=== PATIENT | male | born 1955 | race Caucasian/White ===

== ENCOUNTER 2018-06-28 13:04 | Inpatient (IN) ==
--- NOTE | 2018-06-28 15:34 | ED ---
HPI General Chief complaint: Skin/Abscess/Foreign Body Stated complaint: Medical Time Seen by Provider: 06/28/18 15:16 Source: patient and RN notes reviewed Mode of arrival: ambulatory Limitations: no limitations History of Present Illness HPI narrative: 63-year-old male presents to the emergency department for evaluation of fever, erythema to his bilateral feet. Patient states that on June 16, 2018, he first noticed some erythema to his right foot. He states that he did not think much of it. He states that on Monday, he noticed some erythema to his left foot and left knee. He went to [facility] last night and states he received IV antibiotics around 1 AM. He was moved to room which she says was "dirty". He then left AGAINST MEDICAL ADVICE. He presents here for IV antibiotics. He does not know what antibiotics he already received. Patient does have history of hypertension, type 2 diabetes. He has a fever of 101 upon arrival. Patient denies any other symptoms or complaints. Current pain is 9/10. Moderate severity. MD complaint: Reports other (Cellulitis) Onset (ago): week(s) Location: Reports LLE and RLE Severity: moderate Severity scale (1-10): 9 Quality: Reports aching Pain Consistency: constant Relieving factors: none Exacerbating factors: none Associated symptoms: Reports fever and chills; Denies rigors, itching, nausea, vomiting, malaise, arthralgias, myalgias, cough and shortness of breath Related Data Home Medications Medication Instructions Recorded Confirmed aspirin 81 mg PO DAILY 06/28/18 06/28/18 clonidine HCl 0.3 mg PO BID 06/28/18 06/28/18 cyanocobalamin (vitamin B-12) 1,000 mcg PO DAILY 06/28/18 06/28/18 ferrous sulfate 120 ml PO DAILY 06/28/18 06/28/18 furosemide 10 mg PO DAILY 06/28/18 06/28/18 hydralazine 50 mg PO TID 06/28/18 06/28/18 insulin lispro [Humalog KwikPen 20 unit SUBCUT BID 06/28/18 06/28/18 Insulin] liraglutide 0.6 mg SUBCUT DAILY 06/28/18 06/28/18 lisinopril 20 mg PO DAILY 06/28/18 06/28/18 metoprolol tartrate 100 mg PO BID 06/28/18 06/28/18 patiromer calcium sorbitex 8.4 g PO DAILY 06/28/18 06/28/18 spironolactone 25 mg PO DAILY 06/28/18 06/28/18 tadalafil 20 mg PO DAILY 06/28/18 06/28/18 Allergies Allergy/AdvReac Type Severity Reaction Status Date / Time amlodipine Allergy Swelling Verified 06/28/18 15:29 Review of Systems ROS: all other systems reviewed are negative [facility] Medical History Medical History Diabetes (Acute) Hypertension (Acute) Stage 3 chronic kidney disease (Acute) Surgical History Surgical History History of elbow surgery (Acute) Social History Social History Substance History: No History of Abuse Second Hand Smoke Exposure: No Smoking Status: Never smoker How Often Do You Have a Drink Containing Alcohol: Monthly or less Recent Travel in [facility] within the Last 8 Weeks: No Recent Out of Country Travel within the Last 8 Weeks: No Immunization History Tetanus Immunization: Unsure Exam Narrative Exam Narrative: GENERAL: Well-nourished, well-developed male patient, temp of 101 SKIN: Focused skin assessment warm/dry. Patient has erythema to the right dorsal foot at the base of the toes as well as to the right lateral foot. He has some mild erythema to the left dorsal foot and left dorsal knee. HEAD: Normocephalic. Atraumatic. EYES: No scleral icterus. No injection or drainage. NECK: Supple, trachea midline. No JVD or lymphadenopathy. CARDIOVASCULAR: Regular rate and rhythm without murmurs, gallops, or rubs. Bilateral radial and pedal pulses are 2+ RESPIRATORY: Breath sounds equal bilaterally. No accessory muscle use. Lung sounds are clear to auscultation GASTROINTESTINAL: Abdomen soft, non-tender, nondistended. MUSCULOSKELETAL: No cyanosis. Patient has edema to the right foot. He has full flexion-extension of the left knee. BACK: Nontender without obvious deformity. No CVA tenderness. Course Initial Documented Vital Signs Temperature 101 F H 06/28/18 13:28 Pulse Rate 66 06/28/18 13:28 Respiratory Rate 18 06/28/18 13:28 Blood Pressure 145/72 H 06/28/18 13:28 Pulse Oximetry 96 06/28/18 13:28 Last Documented Vital Signs Temperature 101 F H 06/28/18 13:28 Pulse Rate 65 06/28/18 16:28 Respiratory Rate 18 06/28/18 13:28 Blood Pressure 145/72 H 06/28/18 13:28 Pulse Oximetry 99 06/28/18 16:28 Medical Decision Making MDM Narrative Medical decision making narrative: 63-year-old male presents to the emergency department for evaluation of fever, erythema to the bilateral feet and left knee. He is diabetic. He left AMA from [facility] yesterday. I will attempt to obtain his records before starting him on antibiotics as I do not know what antibiotics he received last night. IV access was obtained. CBC, CMP, lactic acid, blood cultures x2, CRP, ESR, x-ray of the right foot, 3 left foot, x-ray left knee are ordered and pending. Patient is given normal saline 1 L IV bolus , Tylenol 650 mg PO, Morphine 4 mg IV, Zofran 4 mg IV. Patient is given Zosyn 3.375 gm IV. CBC shows leukocytosis of 12.1. CMP shows elevated BUN 62, creatinine 2.90, hyperglycemia 193. ESR is greater than 140. Magnesium is 2.3. CRP is 14. Lactic acid is 1.0. X-ray of the right foot shows generalized soft tissue swelling, no evidence of destructive changes or acute fracture, midfoot degenerative changes. X-ray of the left foot shows midfoot degenerative changes , atherosclerotic calcification, no evidence of acute bony abnormality or significant soft tissue swelling. X-ray of the left knee shows Patellofemoral degenerative disease; Small joint effusion; No evidence of acute fracture. I was able to obtain records from [facility]. Patient was started on vancomycin and cefepime. Last received vancomycin at 2106 on 06/27/18. The records, they had suspicion of osteomyelitis to the left foot due to a lucency seen in the metatarsal the navicular bone that may be secondary to erosions. [facility] is paged for admission for cellulitis, sepsis. Dr. Simmons accepted admission. Medical Screen Exam Complete: Yes Emergency Medical Condition: Yes Differential Diagnosis Differential Diagnosis: Sepsis versus diabetic foot infection versus cellulitis versus abscess versus osteomyelitis Medical Records Medical records reviewed: Yes I reviewed the patient's medical records. Lab Data Result diagrams: 06/28/18 16:00 06/28/18 16:00 Lab Results 06/28/18 06/28/18 06/28/18 Range/Units 16:00 16:00 16:00 WBC 12.1 H (4.0-11.0) th/mm3 RBC 3.31 L (4.50-5.90) mil/mm3 Hgb 9.8 L (13.0-17.0) gm/dL Hct 29.3 L (39.0-51.0) % MCV 88.3 (80.0-100.0) fL MCH 29.6 (27.0-34.0) pg MCHC 33.6 (32.0-36.0) % RDW 13.6 (11.6-17.2) % Plt Count 261 (150-450) th/mm3 MPV 9.9 (7.0-11.0) fL Neut % (Auto) 83.1 H (16.0-70.0) % Lymph % (Auto) 7.8 L (9.0-44.0) % Baca % (Auto) 7.1 (0.0-8.0) % Eos % (Auto) 1.4 (0.0-4.0) % Baso % (Auto) 0.6 (0.0-2.0) % Neut # (Auto) 10.0 H (1.8-7.7) th/mm3 Lymph # (Auto) 0.9 L (1.0-4.8) th/mm3 Baca # (Auto) 0.9 (0.0-0.9) th/mm3 Eos # (Auto) 0.2 (0.0-0.4) th/mm3 Baso # (Auto) 0.1 (0.0-0.2) th/mm3 WBC Differential . Differential Comment Auto diff final ESR (0-20) mm/hr PT 10.2 (9.8-11.6) sec INR 1.0 Ratio APTT 29.6 (23.4-31.7) sec Sodium 136 (136-145) meq/L Potassium 4.5 (3.5-5.1) meq/L Chloride 104 (98-107) meq/L Carbon Dioxide 23.7 (21.0-32.0) meq/L Anion Gap 8 (5-15) meq/L BUN 62 H (7-18) mg/dL Creatinine 2.90 H (0.60-1.30) mg/dL Estimated GFR 22 L (>89) mL/min Random Glucose 193 H (74-106) mg/dL Lactic Acid (0.4-2.0) mmol/L Calcium 8.5 (8.5-10.1) mg/dL Magnesium 2.3 (1.5-2.5) mg/dL Total Bilirubin 0.3 (0.2-1.0) mg/dL AST 10 L (15-37) U/L ALT 15 (12-78) U/L Alkaline Phosphatase 95 (45-117) U/L C-Reactive Protein 14.00 H (0.00-0.30) mg/dL Total Protein 7.5 (6.4-8.2) g/dL Albumin 2.7 L (3.4-5.0) g/dL 06/28/18 06/28/18 Range/Units 16:00 16:00 WBC (4.0-11.0) th/mm3 RBC (4.50-5.90) mil/mm3 Hgb (13.0-17.0) gm/dL Hct (39.0-51.0) % MCV (80.0-100.0) fL MCH (27.0-34.0) pg MCHC (32.0-36.0) % RDW (11.6-17.2) % Plt Count (150-450) th/mm3 MPV (7.0-11.0) fL Neut % (Auto) (16.0-70.0) % Lymph % (Auto) (9.0-44.0) % Baca % (Auto) (0.0-8.0) % Eos % (Auto) (0.0-4.0) % Baso % (Auto) (0.0-2.0) % Neut # (Auto) (1.8-7.7) th/mm3 Lymph # (Auto) (1.0-4.8) th/mm3 Baca # (Auto) (0.0-0.9) th/mm3 Eos # (Auto) (0.0-0.4) th/mm3 Baso # (Auto) (0.0-0.2) th/mm3 WBC Differential Differential Comment ESR Greater than 140 H (0-20) mm/hr PT (9.8-11.6) sec INR Ratio APTT (23.4-31.7) sec Sodium (136-145) meq/L Potassium (3.5-5.1) meq/L Chloride (98-107) meq/L Carbon Dioxide (21.0-32.0) meq/L Anion Gap (5-15) meq/L BUN (7-18) mg/dL Creatinine (0.60-1.30) mg/dL Estimated GFR (>89) mL/min Random Glucose (74-106) mg/dL Lactic Acid 1.0 (0.4-2.0) mmol/L Calcium (8.5-10.1) mg/dL Magnesium (1.5-2.5) mg/dL Total Bilirubin (0.2-1.0) mg/dL AST (15-37) U/L ALT (12-78) U/L Alkaline Phosphatase (45-117) U/L C-Reactive Protein (0.00-0.30) mg/dL Total Protein (6.4-8.2) g/dL Albumin (3.4-5.0) g/dL Imaging Data Radiologist's impression: Foot X-Ray 06/28/18 15:34 CONCLUSION: Midfoot degenerative changes Atherosclerotic calcification No evidence of acute bony abnormality or significant soft tissue swelling. Foot X-Ray 06/28/18 15:34 CONCLUSION: Generalized soft tissue swelling. No evidence of destructive changes or acute fracture. Midfoot degenerative changes. Knee X-Ray 06/28/18 15:34 CONCLUSION: Prepatellar calcification involving the patellar tendon associated with soft tissue swelling most characteristic of chronic patellar tendinitis Patellofemoral degenerative disease. Small joint effusion. No evidence of acute fracture. Discharge Plan Discharge Disposition Patient Disposition: ED Admit(ED Internal Use Only) Discharge Details Diagnosis: Diabetic foot infection, Sepsis Physicians Team ED Provider: Yazan He ED Midlevel Provider: Isatu Levin Primary Care Provider: UNKNOWN, Rxs /Orders / Referrals /Forms Prescriptions: No Action metoprolol tartrate 100 mg Tablet 100 mg PO BID RF: 0 lisinopril 20 mg Tablet 20 mg PO DAILY RF: 0 clonidine HCl 0.3 mg Tablet 0.3 mg PO BID RF: 0 cyanocobalamin (vitamin B-12) 1,000 mcg Tablet 1,000 mcg PO DAILY RF: 0 spironolactone 25 mg Tablet 25 mg PO DAILY RF: 0 ferrous sulfate 325 mg (65 mg iron) Tablet 120 ml PO DAILY RF: 0 aspirin 81 mg Tablet,Chewable 81 mg PO DAILY RF: 0 hydralazine 50 mg Tablet 50 mg PO TID RF: 0 insulin lispro [Humalog KwikPen Insulin] 100 unit/mL Insulin Pen 20 unit SUBCUT BID RF: 0 tadalafil 20 mg Tablet 20 mg PO DAILY RF: 0 liraglutide 0.6 mg/0.1 mL (18 mg/3 mL) Pen Injector 0.6 mg SUBCUT DAILY RF: 0 patiromer calcium sorbitex 8.4 gram Powder In Packet 8.4 g PO DAILY RF: 0 furosemide 10 mg PO DAILY RF: 0 Status ED Status: With Doctor
[2018-06-28] MEDS ORDERED: Sod Chloride 0.9% Inj 1,000 ML IV.SIG ONE ×2 (15:36)
--- NOTE | 2018-06-28 16:22 | XR ---
EXAM DATE: 06/28/2018 4:17 PM EST AGE/SEX: 63 years / Male INDICATIONS: Patient has history of diabetes, pain bilateral feet and left knee and no trauma. CLINICAL DATA: This is the patient's initial encounter. Patient reports that signs and symptoms have been present for 1 month and indicates a pain score of 6/10. MEDICAL/SURGICAL HISTORY: Diabetes. None. COMPARISON: No prior exams available for comparison. FINDINGS: Arterial calcification is seen in the ankle and foot. Patchy degenerative changes are seen throughout the tarsal bones. There is focal subcutaneous cortica l cyst formation. Bony structures are otherwise intact. There is no significant soft tissue swelling. CONCLUSION: Midfoot degenerative changes Atherosclerotic calcification No evidence of acute bony abnormality or significant soft tissue swelling. Electronically signed by: Yasir Wren MD Board Certified Radiologist 06/28/2018 4:20 PM EST
--- NOTE | 2018-06-28 16:23 | XR ---
EXAM DATE: 06/28/2018 4:19 PM EST AGE/SEX: 63 years / Male INDICATIONS: Patient has history of diabetes, pain bilateral feet and left knee and no trauma. CLINICAL DATA: This is the patient's initial encounter. Patient reports that signs and symptoms have been present for 1 month and indicates a pain score of 7/10. MEDICAL/SURGICAL HISTORY: Diabetes. None. COMPARISON: No prior exams available for comparison. FINDINGS: Generalized soft tissue swelling of the foot is noted. Degenerative changes with patchy demineralizat ion and subcortical radiolucencies are seen throughout the midfoot. There are no destructive changes or evidence of acute fracture. Atherosclerotic arterial calcification is noted. CONCLUSION: Generalized soft tissue swelling. No evidence of destructive changes or acute fracture. Midfoot degenerative changes. Electronically signed by: Yasir Wren MD Board Certified Radiologist 06/28/2018 4:21 PM EST
[2018-06-28 16:29] LABS: Baso # (Auto) 0.1 th/mm3 (0.0-0.2); Baso % (Auto) 0.6 % (0.0-2.0); Eos # (Auto) 0.2 th/mm3 (0.0-0.4); Eos % (Auto) 1.4 % (0.0-4.0); Hematocrit 29.3 % (39.0-51.0); Hemoglobin 9.8 gm/dL (13.0-17.0); Lymph # (Auto) 0.9 th/mm3 (1.0-4.8); Lymph % (Auto) 7.8 % (9.0-44.0); Mean Corpuscular HGB Conc 33.6 % (32.0-36.0); Mean Corpuscular Hemoglobin 29.6 pg (27.0-34.0); Mean Corpuscular Volume 88.3 fL (80.0-100.0); Mean Platelet Volume 9.9 fL (7.0-11.0); Mono # (Auto) 0.9 th/mm3 (0.0-0.9); Mono % (Auto) 7.1 % (0.0-8.0); Neut % (Auto) 83.1 % (16.0-70.0); Platelet Count 261 th/mm3 (150-450); Red Blood Count 3.31 mil/mm3 (4.50-5.90); Red Cell Distribution Width 13.6 % (11.6-17.2); White Blood Count 12.1 th/mm3 (4.0-11.0)
--- NOTE | 2018-06-28 16:33 | XR ---
EXAM DATE: 06/28/2018 4:21 PM EST AGE/SEX: 63 years / Male INDICATIONS: Patient has history of diabetes, pain bilateral feet and left knee and no trauma. CLINICAL DATA: This is the patient's initial encounter. Patient reports that signs and symptoms have been present for 1 month and indicates a pain score of 8/10. MEDICAL/SURGICAL HISTORY: Diabetes. None. COMPARISON: No prior exams available for comparison. FINDINGS: Significant prepatellar soft tissue swelling is noted. There is focal soft tissue calcification anter ior to the patella which extends inferiorly into the patellar tendon. Small joint effusion is noted. Mild patellofemoral arthropathy is identified with joint space narrowing and marginal spurring. Bony structures are otherwise intact. CONCLUSION: Prepatellar calcification involving the patellar tendon associated with soft tissue swelling most enoc racteristic of chronic patellar tendinitis Patellofemoral degenerative disease. Small joint effusion. No evidence of acute fracture. Electronically signed by: Yasir Wren MD Board Certified Radiologist 06/28/2018 4:32 PM EST
[2018-06-28 16:38] LABS: Activated Partial Thrombo Time 29.6 sec (23.4-31.7); Prothrombin Time 10.2 sec (9.8-11.6)
[2018-06-28 16:57] LABS: Alanine Aminotransferase 15 U/L (12-78); Albumin 2.7 g/dL (3.4-5.0); Anion Gap 8 meq/L (5-15); Aspartate Aminotransferase 10 U/L (15-37); Blood Urea Nitrogen 62 mg/dL (7-18); Calcium 8.5 mg/dL (8.5-10.1); Carbon Dioxide 23.7 meq/L (21.0-32.0); Chloride 104 meq/L (98-107); Glomerular Filtration Rate 22 mL/min (>89); Glucose,Random 193 mg/dL (74-106); Magnesium 2.3 mg/dL (1.5-2.5); Potassium 4.5 meq/L (3.5-5.1); Sodium 136 meq/L (136-145)
[2018-06-28 17:00] LABS: Alkaline Phosphatase 95 U/L (45-117); Total Protein 7.5 g/dL (6.4-8.2)
[2018-06-28] MEDS ORDERED: Piperacil/Tazo 3.375 GM Premix 3.375 GM/50 ML PIGGYBACK IV.SIG ONE (17:00)
[2018-06-28] MEDS ORDERED: Acetaminophen 325 MG Tablet PO PRN (17:25)
[2018-06-28] MEDS ORDERED: Vancomycin Consult Pharmacy OTHER PRN (17:25)
[2018-06-28] MEDS ORDERED: Bisacodyl 10 MG Supp RECTAL PRN (17:25)
[2018-06-28] MEDS ORDERED: Dextrose 50% in Water 50 ML Vial IV.PUSH PRN (17:31)
[2018-06-28] MEDS: Heparin - SQ 10,000 UNITS/ML Vial SQ SCH (19:51)
[2018-06-28] MEDS ORDERED: Vancomycin Inj 1,000 MG in Sodium Chlor 0.9% Inj 250 ML IV.SIG SCH (20:00)
[2018-06-28] MEDS: Insulin Detemir Inj 1,000 UNIT/10 ML Vial SQ SCH (21:17)
[2018-06-28] MEDS: Insulin NovoLOG Aspart Correctional Sugar Inj SQ SCH (21:17)
--- NOTE | 2018-06-28 22:00 | P.HPIM ---
History of Present Illness Chief Complaint: pain and swelling of feet and knee History of Present Illness: History from patient, ER notes, patient's girlfriend at the bedside, and review of medical records. Records from [facility] also reviewed. Patient reported that starting Billy zahra, he was having pain and swelling of his right foot with mild redness. He actually went to then started having his chiropractor a week ago Monday and had some maneuvers done. It did not really improve his symptoms. By about 4 days ago, his swelling has also happened on his left foot and his left knee. He stated both feet were quite swollen and stiff that he was not able to flex them. He therefore went to [facility] yesterday and was admitted there. However he was not happy with the treatment there stating that there were 9 people in his room. He states they were giving him antibiotics. He believes that he was improved with this and the swelling has gone down and he is now able to flex his feet. However he does not exactly know the diagnosis. When asked, patient stated that his left knee has been having some deformity since several years ago. 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 He states however the swelling and the pain in the prepatellar area is new. Patient and girlfriend at the bedside stated that patient eats a lot of red meat. However he is not a drinker. He is not diabetic also diabetic. Patient denies any recent fevers. He report of stepping on a piece of glass about 2 weeks prior to onset of his symptoms and Billy. However he was quite confident that he removed that piece of glass at that time. Apart from the above, patient denies any recent nausea/vomiting/diarrhea/ urinary burning or pain on urination. Denies any hematemesis/hematochezia/melena/hematuria. Denies any chest pain/palpitations/shortness of breath/syncopal episodes/ dizziness/falls. He does report of dry cough but this has been chronic. Past medical history: Diabetes Hypertension Chronic kidney disease stage III Obstructive sleep apnea on CPAP at night Past surgical history: Umbilical hernia repair Elbow surgery at the age of [age] years old Glaucoma surgery Cataract surgery Colonoscopy. Latest last year. Social history: Denies smoking/alcohol abuse/drug abuse. Family history: Father had colon cancer. 2 brothers have diabetes. One sister has heart disease. Home medications: Patient has a list of pills of his home medications with him. This was reviewed with him and the nurse. Clonidine 0.3 mg. Take half a tablet of it 3 times daily. Lantus 50 units subcu nightly. Victoza 0.6 mg subcu nightly. Humalog sliding scale 3 times daily before meals. Metoprolol 100 mg p.o. twice daily. Spironolactone 25 mg p.o. nightly. Aspirin 81 mg p.o. daily. Lasix 20 mg p.o. daily. Lisinopril 20 mg half a tablet of that p.o. nightly. Iron pills. Folic acid. Inpatient Certification Inpatient Certification: I certify that the inpatient services were ordered in accordance with Medicare regulations governing the order. This includes certification that hospital inpatient services are reasonable and necessary and in the case of services not specified as inpatient-only under 42 CFR 419.22(n), that they are appropriately provided as inpatient services in accordance to with the 2-midnight benchmark under 43 CFR 412.3(e) Estimated Total Length of Stay (Days): 3 Plans for Post Hospital Care: Home Review of Systems Review of Systems: all other systems reviewed are negative [facility] Medical History Medical History Diabetes (Acute) Hypertension (Acute) Stage 3 chronic kidney disease (Acute) Surgical History Surgical History History of elbow surgery (Acute) Social History Social History Substance History: No History of Abuse Second Hand Smoke Exposure: No Smoking Status: Never smoker How Often Do You Have a Drink Containing Alcohol: Monthly or less Recent Travel in [place] within the Last 8 Weeks: No Recent Out of Country Travel within the Last 8 Weeks: No Immunization History Tetanus Immunization: Unsure Medications and Allergies Allergies Allergy/AdvReac Type Severity Reaction Status Date / Time amlodipine Allergy Swelling Verified 06/28/18 15:29 Home Medications Medication Instructions Recorded Confirmed Type aspirin 81 mg PO DAILY 06/28/18 06/28/18 History clonidine HCl 0.3 mg PO BID 06/28/18 06/28/18 History ferrous sulfate 120 ml PO DAILY 06/28/18 06/28/18 History hydralazine 50 mg PO TID 06/28/18 06/28/18 History insulin glargine [Lantus U-100 50 unit SUBCUT DAILY 06/28/18 06/28/18 History Insulin] insulin lispro [Humalog KwikPen 20 unit SUBCUT BID 06/28/18 06/28/18 History Insulin] liraglutide 0.6 mg SUBCUT DAILY 06/28/18 06/28/18 History lisinopril 10 mg PO DAILY 06/28/18 06/28/18 History metoprolol tartrate 100 mg PO BID 06/28/18 06/28/18 History spironolactone 25 mg PO DAILY 06/28/18 06/28/18 History Active Medications: Active Medications Acetaminophen (Tylenol) 650 mg PO Q4H PRN PRN Reason: Headache, fever, pain 1-4 Hydrocodone Bitart/Acetaminophen ([place] 7.5/325) 1 tab PO Q6H PRN PRN Reason: Pain 5-10 Last Admin: 06/28/18 21:18 Dose: 1 tab Al Hydroxide/Mg Hydroxide (Milk Of flux - neutrinityjose Liq) 30 ml PO Q12H PRN PRN Reason: Mild Constipation Bisacodyl (Dulcolax Supp) 10 mg RECTAL DAILY PRN PRN Reason: SEVERE CONSITIPATION Dextrose (D50w Vial) 50 ml IV.PUSH UNSCH PRN PRN Reason: PER HYPOGLYCEMIA PROTOCOL Glucagon (Glucagon Inj) 1 mg OTHER PRN PRN PRN Reason: for Hypoglycemia Protocol Heparin Sodium (Porcine) (Heparin Inj) 5,000 units SQ Q12H [facility] Last Admin: 06/28/18 19:51 Dose: 5,000 units Ceftriaxone Sodium 2,000 mg/ (Sodium Chloride) 100 mls @ 200 mls/hr IV.SIG Q24H [facility] Last Infusion: 06/28/18 20:56 Dose: Infused Vancomycin HCl 1,000 mg/ (Sodium Chloride) 250 mls @ 250 mls/hr IV.SIG Q24H [facility] Last Infusion: 06/28/18 21:54 Dose: Infused Insulin Aspart (Novolog Insulin Correctional Sugar Inj) 0 unit SQ ACHS [facility]; Protocol Last Admin: 06/28/18 21:17 Dose: 100 unit Insulin Detemir (Levemir Inj) 10 unit SQ HS [facility] Last Admin: 06/28/18 21:17 Dose: 10 unit Lactulose (Lactulose Liq) 30 ml PO DAILY PRN PRN Reason: SEVERE CONSITIPATION Miscellaneous Information ([facility] Ordered Lab Info) 0 each OTHER ONCE ONE Stop: 07/01/18 19:46 Ondansetron HCl (Zofran Inj) 4 mg IV.PUSH Q6H PRN PRN Reason: NAUSEA OR VOMITING Pharmacy Profile Note (Vancomycin Consult Pharmacy) 1 each OTHER UNSCH PRN PRN Reason: Pharmacy to dose Sennosides (Senokot) 17.2 mg PO Q12H PRN PRN Reason: Moderate Constipation Sodium Chloride (Ns Flush) 2 ml IV.FLUSH BID [facility] Last Admin: 06/28/18 21:04 Dose: Not Given Sodium Chloride (Ns Flush) 2 ml IV.FLUSH PRN PRN PRN Reason: FLUSH AFTER USING IV ACCESS Physical Exam Vital signs: Last Vital Signs Temp 101 F H 06/28/18 13:28 Pulse 81 06/28/18 20:01 Resp 18 06/28/18 20:01 BP 153/68 H 06/28/18 20:01 Pulse Ox 99 06/28/18 20:01 Intake & Output 06/26/18 06/27/18 06/28/18 06/29/18 06:59 06:59 06:59 06:59 Intake Total 2400 / 2400 Balance 2400 / 2400 Weight 106.594 kg GENERAL: This is a well-nourished, well-developed patient, in no apparent distress. CARDIOVASCULAR: Regular rate and rhythm without murmurs, gallops, or rubs. RESPIRATORY: Clear to auscultation. Breath sounds equal bilaterally. No wheezes , rales, or rhonchi. GASTROINTESTINAL: Abdomen soft, non-tender, nondistended. Normal active bowel sounds MUSCULOSKELETAL: Extremities without clubbing, cyanosis. Bilateral feet edema with right more than the left. Right foot swelling up to mid calf. With associated redness, warmth starting from tip of toes to middle of right dorsum foot. Left foot similarly with edema, warmth and redness though to a much less extent. Left knee swelling with pain on palpation of the prepatellar area. Tophaceous lesion left knee. NEURO: Alert & Oriented x4 to person, place, time, situation. Moves all ext x4. Limited range of motion at ankle bilaterally due to pain and swelling. Results Labs CBC & Chem 7: 06/28/18 16:00 06/28/18 16:00 Imaging Impressions Foot X-Ray 06/28/18 15:34 CONCLUSION: Midfoot degenerative changes Atherosclerotic calcification No evidence of acute bony abnormality or significant soft tissue swelling. Foot X-Ray 06/28/18 15:34 CONCLUSION: Generalized soft tissue swelling. No evidence of destructive changes or acute fracture. Midfoot degenerative changes. Knee X-Ray 06/28/18 15:34 CONCLUSION: Prepatellar calcification involving the patellar tendon associated with soft tissue swelling most characteristic of chronic patellar tendinitis Patellofemoral degenerative disease. Small joint effusion. No evidence of acute fracture. Caprini VTE Risk Assessment Caprini VTE Risk Assessment: Moderate/High Risk (score >= 2) Caprini Risk Assessment Model: Point Value = 1 Point Value = 2 Point Value = 3 Point Value = 5 Age 41-60 Minor surgery BMI > 25 kg/m2 Swollen legs Varicose veins or History of unexplained or recurrent spontaneous Oral contraceptives or hormone replacement Sepsis (< 1 month) Serious lung disease, including pneumonia (< 1 month) Abnormal pulmonary function Acute myocardial infarction Congestive heart failure (< 1 month) History of inflammatory bowel disease Medical patient at bed rest Age 61-74 Arthroscopic surgery Major open surgery (> 45 min) Laparoscopic surgery (> 45 min) Malignancy Confined to bed (> 72 hours) Immobilizing plaster cast Central venous access Age >= 75 History of VTE Family history of VTE Factor V Leiden Prothrombin [id number] Lupus anticoagulant Anticardiolipin antibodies Elevated serum homocysteine Heparin-induced thrombocytopenia Other congenital or acquired thrombophilia Stroke (< 1 month) Elective arthroplasty Hip, pelvis, or leg fracture Acute spinal cord injury (< 1 month) Prophylaxis Regimen: Total Risk Factor Score Risk Level Prophylaxis Regimen 0-1 Low Early ambulation 2 Moderate Order ONE of the following: *Sequential Compression Device (SCD) *Heparin 5000 units SQ BID 3-4 Higher Order ONE of the following medications: *Heparin 5000 units SQ TID *Enoxaparin/Lovenox 40 mg SQ daily (WT < 150 kg, CrCl > 30 mL/min) *Enoxaparin/Lovenox 30 mg SQ daily (WT < 150 kg, CrCl > 10-29 mL/min) *Enoxaparin/Lovenox 30 mg SQ BID (WT < 150 kg, CrCl > 30 mL/min) AND/OR *Sequential Compression Device (SCD) 5 or more Highest Order ONE of the following medications: *Heparin 5000 units SQ TID (Preferred with Epidurals) *Enoxaparin/Lovenox 40 mg SQ daily (WT < 150 kg, CrCl > 30 mL/min) *Enoxaparin/Lovenox 30 mg SQ daily (WT < 150 kg, CrCl > 10-29 mL/min) *Enoxaparin/Lovenox 30 mg SQ BID (WT < 150 kg, CrCl > 30 mL/min) AND *Sequential Compression Device (SCD) Assessment and Plan Plan Impression: Bilateral ankle swelling, erythema, pain with involvement of left knee prepatellar swelling and pain. Likely secondary to polyarticular gouty arthritis attack. Concomitant diabetic foot infection Leukocytosis with left shift Elevated ESR Elevated CRP Chronic patellar tendinitis per imaging studies Diabetes Hypertension Chronic kidney disease stage III Obstructive sleep apnea on CPAP at night Plan: Patient received vancomycin and Zosyn in ER. For now, I would continue vancomycin and Zosyn given that patient is diabetic as well. However for pharmacy to dose vancomycin closely given his chronic kidney disease stage III. Will quickly need to take a Vanco. Therefore it is important to have diagnosis by arthrocentesis. Orthopedics consult for possible joint tap in order to diagnose for gouty arthritis. At present, patient's pain is controlled and he really does not want to take any narcotics or any prednisone to control pain and fear that he might damage his kidneys. NSAIDs are contraindicated due to chronic kidney disease stage III. Will await. Patient states the pain is getting better with treatment of antibiotics. Serum uric acid level. Urine uric acid level. Hold nephrotoxic medications. Infectious disease consult.Would really like to reduce need of nephrotoxic antibiotics. DVT prophylaxis with heparin.
[2018-06-29 07:19] LABS: Baso % (Auto) 0.3 % (0.0-2.0); Eos # (Auto) 0.2 th/mm3 (0.0-0.4); Eos % (Auto) 2.3 % (0.0-4.0); Hematocrit 27.7 % (39.0-51.0); Hemoglobin 9.5 gm/dL (13.0-17.0); Lymph % (Auto) 10.1 % (9.0-44.0); Mean Corpuscular HGB Conc 34.4 % (32.0-36.0); Mean Corpuscular Hemoglobin 29.9 pg (27.0-34.0); Mean Corpuscular Volume 86.9 fL (80.0-100.0); Mean Platelet Volume 9.6 fL (7.0-11.0); Mono % (Auto) 10.1 % (0.0-8.0); Neut # (Auto) 7.6 th/mm3 (1.8-7.7); Neut % (Auto) 77.2 % (16.0-70.0); Platelet Count 212 th/mm3 (150-450); Red Blood Count 3.18 mil/mm3 (4.50-5.90); Red Cell Distribution Width 13.6 % (11.6-17.2); White Blood Count 9.9 th/mm3 (4.0-11.0)
[2018-06-29 07:52] LABS: Calcium 8.4 mg/dL (8.5-10.1); Carbon Dioxide 23.6 meq/L (21.0-32.0); Potassium 4.2 meq/L (3.5-5.1)
[2018-06-29 07:55] LABS: Uric Acid 8.8 mg/dl (2.6-7.2)
[2018-06-29] MEDS: Heparin - SQ 10,000 UNITS/ML Vial SQ SCH ×2 (07:58→20:13)
[2018-06-29] MEDS ORDERED: LIRAGLUTIDE 0.6 MG SQ SCH (09:00)
[2018-06-29] MEDS: Ferrous Sulfate 325 MG Tablet PO SCH (09:23)
[2018-06-29] MEDS: Spironolactone 25 MG Tablet PO SCH (09:23)
[2018-06-29] MEDS: Metoprolol Tartrate 100 MG Tablet PO SCH ×2 (09:23→20:14)
[2018-06-29] MEDS: hydrALAZINE 50 MG Tablet PO SCH ×3 (09:23→17:26)
[2018-06-29] MEDS: Lisinopril 10 MG Tablet PO SCH (09:23)
[2018-06-29] MEDS: Insulin NovoLOG Aspart Correctional Sugar Inj SQ SCH ×4 (09:31→20:14)
--- NOTE | 2018-06-29 13:02 | P.PNIM ---
Subjective Interval history: Chief Complaint: pain and swelling of feet and knee History of Present Illness: History from patient, ER notes, patient's girlfriend at the bedside, and review of medical records. Records from [facility] also reviewed. Patient reported that starting , he was having pain and swelling of his right foot with mild redness. He actually went to his chiropractor a week ago Monday and had some maneuvers done. It did not really improve his symptoms. By about 4 days ago, his swelling has also happened on his left foot and his left knee. He stated both feet were quite swollen and stiff that he was not able to flex them. He therefore went to [facility] yesterday and was admitted there. However he was not happy with the treatment there stating that there were 9 people in his room. He states they were giving him antibiotics. He believes that he was improved with this and the swelling has gone down and he is now able to flex his feet. However he does not exactly know the diagnosis. When asked, patient stated that his left knee has been having some deformity since several years ago. 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 He states however the swelling and the pain in the prepatellar area is new. Patient and girlfriend at the bedside stated that patient eats a lot of red meat. However he is not a drinker. He is diabetic. Patient denies any recent fevers. He report of stepping on a piece of glass about 2 weeks prior to onset of his symptoms around . However he was quite confident that he removed that piece of glass at that time. Apart from the above, patient denies any recent nausea/vomiting/diarrhea/ urinary burning or pain on urination. Denies any hematemesis/hematochezia/melena/hematuria. Denies any chest pain/palpitations/shortness of breath/syncopal episodes/ dizziness/falls. He does report of dry cough but this has been chronic. 1-4 patient complains of lots of pain in his left knee feet worse on his right lower extremity than left lower extremity Did have some swelling in the right lower extremity which is less than did have some erythema and purplish hue which is decreased Orthopedics and infectious disease have been consulted by my colleague Patient complains of pain wants more pain medications more often We will adjust this Discussed with patient and family at bedside and [facility] Physical Exam Vital signs: Vital Signs 06/28/18 13:28 06/28/18 16:28 06/28/18 20:01 Temperature 101 F H Pulse Rate 66 65 81 Respiratory Rate 18 18 Blood Pressure 145/72 H 153/68 H Pulse Oximetry 96 99 99 06/28/18 22:58 06/29/18 00:00 06/29/18 04:00 Temperature 99.7 F H 98.1 F 99.5 F Pulse Rate 67 70 68 Respiratory Rate 19 19 19 Blood Pressure 171/74 H 185/84 H 162/79 H Pulse Oximetry 95 96 97 06/29/18 08:00 06/29/18 12:00 Temperature 97.7 F 99.9 F H Pulse Rate 61 67 Respiratory Rate 16 16 Blood Pressure 150/70 H 180/82 H Pulse Oximetry 95 95 Intake & Output 06/28/18 06/29/18 06/29/18 18:59 06:59 18:59 Intake Total 1050 / 1050 1590 / 1590 Balance 1050 / 1050 1590 / 1590 Weight 106.594 kg 106.7 kg Intake: IV 1050 / 1050 1350 / 1350 Zosyn 3.375 GM Premix 3.375 gm 50 / 50 In 50 ml @ 100 mls/hr IV.SIG ONCE ONE Rx#:[id number] NS Inj 1,000 ML @ Wide Open IV. 1000 / 1000 1000 / 1000 SIG BOLUS ONE Rx#:[id number] Vancomycin Inj 1,000 MG In NS 250 / 250 Inj 250 ML @ 250 mls/hr IV.SIG Q24H [facility] Rx#:[id number] Rocephin Inj 2,000 MG In NS Inj 100 / 100 100 ML @ 200 mls/hr IV.SIG Q24H [facility] Rx#:[id number] Oral 240 / 240 Other: # Voids 3 Date of Last Bowel Movement 06/28/18 Weight On Admission 106.594 kg Narrative: GENERAL: This is a well-nourished, well-developed patient, in no apparent distress. Head is normocephalic atraumatic Pupils are equal round reactive light accommodation and extraocular muscles intact Oromucosa is moist tongue is midline Neck is supple there is no JVD CARDIOVASCULAR: Regular rate and rhythm without murmurs, gallops, or rubs. S1- S2 no S3 or S4 RESPIRATORY: Clear to auscultation. Breath sounds equal bilaterally. No wheezes , rales, or rhonchi. GASTROINTESTINAL: Abdomen soft, non-tender, nondistended. Normal active bowel sounds MUSCULOSKELETAL: Extremities without clubbing, cyanosis. Bilateral feet edema with right more than the left. Right foot swelling IMPROVED With associated redness, warmth starting from tip of toes to middle of right dorsum foot. Left foot similarly with edema, NO warmth and NO redness Left knee swelling with pain on palpation of the prepatellar area. Tophaceous lesion left knee. NEURO: Alert & Oriented x4 to person, place, time, situation. Moves all ext x4. Limited range of motion at ankle bilaterally due to pain and swelling. Insight and judgment is limited Mood and behavior is not appropriate Results - Labs CBC & Chem 7: 06/29/18 06:25 06/29/18 06:25 Laboratory Results - last 24 hr 06/28/18 06/28/18 06/28/18 16:00 16:00 16:00 WBC 12.1 H RBC 3.31 L Hgb 9.8 L Hct 29.3 L MCV 88.3 MCH 29.6 MCHC 33.6 RDW 13.6 Plt Count 261 MPV 9.9 Neut % (Auto) 83.1 H Lymph % (Auto) 7.8 L [place] % (Auto) 7.1 Eos % (Auto) 1.4 Baso % (Auto) 0.6 Neut # (Auto) 10.0 H Lymph # (Auto) 0.9 L [place] # (Auto) 0.9 Eos # (Auto) 0.2 Baso # (Auto) 0.1 WBC Differential . Differential Comment Auto diff final ESR PT 10.2 INR 1.0 APTT 29.6 Sodium 136 Potassium 4.5 Chloride 104 Carbon Dioxide 23.7 Anion Gap 8 BUN 62 H Creatinine 2.90 H Estimated GFR 22 L POC Glucose Random Glucose 193 H Lactic Acid Uric Acid Calcium 8.5 Magnesium 2.3 Total Bilirubin 0.3 AST 10 L ALT 15 Alkaline Phosphatase 95 C-Reactive Protein 14.00 H Total Protein 7.5 Albumin 2.7 L 06/28/18 06/28/18 06/28/18 16:00 16:00 21:02 WBC RBC Hgb Hct MCV MCH MCHC RDW Plt Count MPV Neut % (Auto) Lymph % (Auto) [place] % (Auto) Eos % (Auto) Baso % (Auto) Neut # (Auto) Lymph # (Auto) [place] # (Auto) Eos # (Auto) Baso # (Auto) WBC Differential Differential Comment ESR Greater than 140 H PT INR APTT Sodium Potassium Chloride Carbon Dioxide Anion Gap BUN Creatinine Estimated GFR POC Glucose 284 H Random Glucose Lactic Acid 1.0 Uric Acid Calcium Magnesium Total Bilirubin AST ALT Alkaline Phosphatase C-Reactive Protein Total Protein Albumin 06/29/18 06/29/18 06/29/18 06:25 06:25 06:25 WBC 9.9 RBC 3.18 L Hgb 9.5 L Hct 27.7 L MCV 86.9 MCH 29.9 MCHC 34.4 RDW 13.6 Plt Count 212 MPV 9.6 Neut % (Auto) 77.2 H Lymph % (Auto) 10.1 [place] % (Auto) 10.1 H Eos % (Auto) 2.3 Baso % (Auto) 0.3 Neut # (Auto) 7.6 Lymph # (Auto) 1.0 [place] # (Auto) 1.0 H Eos # (Auto) 0.2 Baso # (Auto) 0.0 WBC Differential . Differential Comment Auto diff final ESR PT INR APTT Sodium 138 Potassium 4.2 Chloride 105 Carbon Dioxide 23.6 Anion Gap 9 BUN 53 H Creatinine 2.48 H Estimated GFR 26 L POC Glucose Random Glucose 193 H Lactic Acid Uric Acid 8.8 H Cancelled Calcium 8.4 L Magnesium Total Bilirubin AST ALT Alkaline Phosphatase C-Reactive Protein Total Protein Albumin 06/29/18 06/29/18 09:10 12:35 WBC RBC Hgb Hct MCV MCH MCHC RDW Plt Count MPV Neut % (Auto) Lymph % (Auto) [place] % (Auto) Eos % (Auto) Baso % (Auto) Neut # (Auto) Lymph # (Auto) [place] # (Auto) Eos # (Auto) Baso # (Auto) WBC Differential Differential Comment ESR PT INR APTT Sodium Potassium Chloride Carbon Dioxide Anion Gap BUN Creatinine Estimated GFR POC Glucose 225 H 308 H Random Glucose Lactic Acid Uric Acid Calcium Magnesium Total Bilirubin AST ALT Alkaline Phosphatase C-Reactive Protein Total Protein Albumin Microbiology 06/28/18 16:00 Blood - Peripheral Aerobic Blood Culture - Preliminary No growth in 1 day 06/28/18 16:00 Blood - Peripheral Anaerobic Blood Culture - Preliminary No growth in 1 day 06/28/18 16:05 Blood - Peripheral Aerobic Blood Culture - Preliminary No growth in 1 day 06/28/18 16:05 Blood - Peripheral Anaerobic Blood Culture - Preliminary No growth in 1 day - Imaging Impressions Foot X-Ray 06/28/18 15:34 CONCLUSION: Midfoot degenerative changes Atherosclerotic calcification No evidence of acute bony abnormality or significant soft tissue swelling. Foot X-Ray 06/28/18 15:34 CONCLUSION: Generalized soft tissue swelling. No evidence of destructive changes or acute fracture. Midfoot degenerative changes. Knee X-Ray 06/28/18 15:34 CONCLUSION: Prepatellar calcification involving the patellar tendon associated with soft tissue swelling most characteristic of chronic patellar tendinitis Patellofemoral degenerative disease. Small joint effusion. No evidence of acute fracture. - Procedures NONE Assessment and Plan - Plan Bilateral ankle swelling, erythema, pain with involvement of left knee prepatellar swelling and pain. Likely secondary to polyarticular gouty arthritis attack. Concomitant diabetic foot infection Leukocytosis with left shift Elevated ESR Elevated CRP Chronic patellar tendinitis per imaging studies Diabetes Hypertension Chronic kidney disease stage III Obstructive sleep apnea on CPAP at night POSSIBLE GOUT LEFT KNEE Plan: Patient received vancomycin and Zosyn in ER. For now, I would continue vancomycin and Zosyn given that patient is diabetic as well. However for pharmacy to dose vancomycin closely given his chronic kidney disease stage III. Therefore it is important to have diagnosis by arthrocentesis. Orthopedics consult for possible joint tap in order to diagnose for gouty arthritis. PATIENT NOW STATES HIS PAIN IS NOT CONTROLLED ENOUGH WANTS PAIN MEDS ADJUSTED NSAIDs are contraindicated due to chronic kidney disease stage III. Patient states the pain is getting better with treatment of antibiotics. Serum uric acid level. ELEVATED Urine uric acid level. Hold nephrotoxic medications. Infectious disease consult. Would really like to reduce need of nephrotoxic antibiotics. DVT prophylaxis with heparin. Code Status: FULL CODE Discussed Condition With: RN AND FAMILY AND PATIENT Discharge Planning: PENDING ORTHO AND ID CLEARANCE
[2018-06-29] MEDS ORDERED: Vancomycin Inj 1,500 MG in Sodium Chlor 0.9% Inj 500 ML IV.SIG ONE (15:00)
--- NOTE | 2018-06-29 18:37 | P.CONPOD ---
History of Present Illness Primary Care Provider: UNKNOWN Chief Complaint: pain and swelling of feet and knee PMFSH - History History Provided By: Patient - Medical History Medical History: Medical History (Last Reviewed 06/29/18 @ 12:00 by Anamika Maria) Diabetes Hypertension Stage 3 chronic kidney disease - Surgical History Surgical History: Surgical History (Last Reviewed 06/29/18 @ 12:00 by Anamika Maria) History of elbow surgery - Tobacco History Second Hand Smoke Exposure: No Smoking Status: Never smoker - Alcohol History How Often Do You Have a Drink Containing Alcohol: Monthly or less - Substance Use History Substance History: No History of Abuse - Travel History Recent Travel in the [place] Within the Last 8 Weeks: No Recent Travel Out of the Country Within the Last 8 Weeks: No - Immunization History Tetanus Immunization: Unsure Hx Influenza Vaccine This Season: Yes Medications and Allergies Active Medications: Active Medications Acetaminophen (Tylenol) 650 mg PO Q4H PRN PRN Reason: Headache, fever, pain 1-4 Hydrocodone Bitart/Acetaminophen ([place] 7.5/325) 1 tab PO Q4H PRN PRN Reason: Pain 5-10 Al Hydroxide/Mg Hydroxide (Milk Of Magnesia Liq) 30 ml PO Q12H PRN PRN Reason: Mild Constipation Aspirin (Aspirin Chew) 81 mg PO DAILY [facility] Last Admin: 06/29/18 09:17 Dose: Not Given Bisacodyl (Dulcolax Supp) 10 mg RECTAL DAILY PRN PRN Reason: SEVERE CONSITIPATION Clonidine HCl (Catapres) 0.3 mg PO BID [facility] Last Admin: 06/29/18 13:56 Dose: Not Given Clonidine HCl (Catapres) 0.1 mg PO Q6H PRN PRN Reason: SBP >160, DBP >95 Last Admin: 06/29/18 13:49 Dose: 0.1 mg Dextrose (D50w Vial) 50 ml IV.PUSH UNSCH PRN PRN Reason: PER HYPOGLYCEMIA PROTOCOL Ferrous Sulfate (Ferosul) 325 mg PO DAILY [facility] Last Admin: 06/29/18 09:23 Dose: 325 mg Glucagon (Glucagon Inj) 1 mg OTHER PRN PRN PRN Reason: for Hypoglycemia Protocol Heparin Sodium (Porcine) (Heparin Inj) 5,000 units SQ Q12H [facility] Last Admin: 06/29/18 07:58 Dose: Not Given Hydralazine HCl (Apresoline) 50 mg PO TID [facility] Last Admin: 06/29/18 17:26 Dose: 50 mg Ceftriaxone Sodium 2,000 mg/ (Sodium Chloride) 100 mls @ 200 mls/hr IV.SIG Q24H [facility] Last Infusion: 06/28/18 20:56 Dose: Infused Insulin Aspart (Novolog Insulin Correctional Sugar Inj) 0 unit SQ ACHS [facility]; Protocol Last Admin: 06/29/18 17:27 Dose: 5 unit Insulin Detemir (Levemir Inj) 10 unit SQ HS [facility] Last Admin: 06/28/18 21:17 Dose: 10 unit Lactulose (Lactulose Liq) 30 ml PO DAILY PRN PRN Reason: SEVERE CONSITIPATION Lisinopril (Prinivil) 10 mg PO DAILY [facility] Last Admin: 06/29/18 09:23 Dose: 10 mg Metoprolol Tartrate (Lopressor) 100 mg PO BID [facility] Last Admin: 06/29/18 09:23 Dose: 100 mg Miscellaneous Information ([facility] Ordered Lab Info) 0 each OTHER ONCE ONE Stop: 07/01/18 19:46 Non-Formulary Medication (Insulin Glargine) 50 unit SQ DAILY [facility] Last Admin: 06/29/18 09:32 Dose: Not Given Non-Formulary Medication (Liraglutide [Liraglutide]) 0.6 mg SQ DAILY [facility] Last Admin: 06/29/18 09:33 Dose: Not Given Ondansetron HCl (Zofran Inj) 4 mg IV.PUSH Q6H PRN PRN Reason: NAUSEA OR VOMITING Pharmacy Profile Note (Vancomycin Consult Pharmacy) 1 each OTHER UNSCH PRN PRN Reason: Pharmacy to dose Sennosides (Senokot) 17.2 mg PO Q12H PRN PRN Reason: Moderate Constipation Sodium Chloride (Ns Flush) 2 ml IV.FLUSH BID [facility] Last Admin: 06/29/18 09:33 Dose: 2 ml Sodium Chloride (Ns Flush) 2 ml IV.FLUSH PRN PRN PRN Reason: FLUSH AFTER USING IV ACCESS Spironolactone (Aldactone) 25 mg PO DAILY [facility] Last Admin: 06/29/18 09:23 Dose: 25 mg Allergies Allergy/AdvReac Type Severity Reaction Status Date / Time amlodipine Allergy Swelling Verified 06/28/18 15:29 Home Medications Medication Instructions Recorded Confirmed Type aspirin 81 mg PO DAILY 06/28/18 06/28/18 History clonidine HCl 0.3 mg PO BID 06/28/18 06/28/18 History ferrous sulfate 120 ml PO DAILY 06/28/18 06/28/18 History hydralazine 50 mg PO TID 06/28/18 06/28/18 History insulin glargine [Lantus U-100 50 unit SUBCUT DAILY 06/28/18 06/28/18 History Insulin] insulin lispro [Humalog KwikPen 20 unit SUBCUT BID 06/28/18 06/28/18 History Insulin] liraglutide 0.6 mg SUBCUT DAILY 06/28/18 06/28/18 History lisinopril 10 mg PO DAILY 06/28/18 06/28/18 History metoprolol tartrate 100 mg PO BID 06/28/18 06/28/18 History spironolactone 25 mg PO DAILY 06/28/18 06/28/18 History Physical Exam Vital signs: Vital Signs 06/28/18 20:01 06/28/18 22:58 06/29/18 00:00 Temperature 99.7 F H 98.1 F Pulse Rate 81 67 70 Respiratory Rate 18 19 19 Blood Pressure 153/68 H 171/74 H 185/84 H Pulse Oximetry 99 95 96 06/29/18 04:00 06/29/18 08:00 06/29/18 12:00 Temperature 99.5 F 97.7 F 99.9 F H Pulse Rate 68 61 67 Respiratory Rate 19 16 16 Blood Pressure 162/79 H 150/70 H 180/82 H Pulse Oximetry 97 95 95 06/29/18 16:00 06/29/18 16:31 Temperature 100.9 F H Pulse Rate 77 Respiratory Rate 18 18 Blood Pressure 157/85 H Pulse Oximetry 95 Intake & Output 06/28/18 06/29/18 06/29/18 18:59 06:59 18:59 Intake Total 1050 / 1050 1590 / 1590 Balance 1050 / 1050 1590 / 1590 Weight 106.594 kg 106.7 kg Intake: IV 1050 / 1050 1350 / 1350 Zosyn 3.375 GM Premix 3.375 gm 50 / 50 In 50 ml @ 100 mls/hr IV.SIG ONCE ONE Rx#:[id number] NS Inj 1,000 ML @ Wide Open IV. 1000 / 1000 1000 / 1000 SIG BOLUS ONE Rx#:[id number] Vancomycin Inj 1,000 MG In NS 250 / 250 Inj 250 ML @ 250 mls/hr IV.SIG Q24H [facility] Rx#:[id number] Rocephin Inj 2,000 MG In NS Inj 100 / 100 100 ML @ 200 mls/hr IV.SIG Q24H [facility] Rx#:[id number] Oral 240 / 240 Other: # Voids 3 Date of Last Bowel Movement 06/28/18 06/28/18 Weight On Admission 106.594 kg Results - Labs CBC & Chem 7: 06/29/18 06:25 06/29/18 06:25 Laboratory Results - last 24 hr 06/28/18 06/29/18 06/29/18 21:02 06:25 06:25 WBC 9.9 RBC 3.18 L Hgb 9.5 L Hct 27.7 L MCV 86.9 MCH 29.9 MCHC 34.4 RDW 13.6 Plt Count 212 MPV 9.6 Neut % (Auto) 77.2 H Lymph % (Auto) 10.1 [place] % (Auto) 10.1 H Eos % (Auto) 2.3 Baso % (Auto) 0.3 Neut # (Auto) 7.6 Lymph # (Auto) 1.0 [place] # (Auto) 1.0 H Eos # (Auto) 0.2 Baso # (Auto) 0.0 WBC Differential . Differential Comment Auto diff final Sodium 138 Potassium 4.2 Chloride 105 Carbon Dioxide 23.6 Anion Gap 9 BUN 53 H Creatinine 2.48 H Estimated GFR 26 L POC Glucose 284 H Random Glucose 193 H Uric Acid 8.8 H Calcium 8.4 L 06/29/18 06/29/18 06/29/18 06:25 09:10 12:35 WBC RBC Hgb Hct MCV MCH MCHC RDW Plt Count MPV Neut % (Auto) Lymph % (Auto) [place] % (Auto) Eos % (Auto) Baso % (Auto) Neut # (Auto) Lymph # (Auto) [place] # (Auto) Eos # (Auto) Baso # (Auto) WBC Differential Differential Comment Sodium Potassium Chloride Carbon Dioxide Anion Gap BUN Creatinine Estimated GFR POC Glucose 225 H 308 H Random Glucose Uric Acid Cancelled Calcium 06/29/18 17:22 WBC RBC Hgb Hct MCV MCH MCHC RDW Plt Count MPV Neut % (Auto) Lymph % (Auto) [place] % (Auto) Eos % (Auto) Baso % (Auto) Neut # (Auto) Lymph # (Auto) [place] # (Auto) Eos # (Auto) Baso # (Auto) WBC Differential Differential Comment Sodium Potassium Chloride Carbon Dioxide Anion Gap BUN Creatinine Estimated GFR POC Glucose 290 H Random Glucose Uric Acid Calcium Microbiology 06/28/18 16:00 Blood - Peripheral Aerobic Blood Culture - Preliminary No growth in 1 day 06/28/18 16:00 Blood - Peripheral Anaerobic Blood Culture - Preliminary No growth in 1 day 06/28/18 16:05 Blood - Peripheral Aerobic Blood Culture - Preliminary No growth in 1 day 06/28/18 16:05 Blood - Peripheral Anaerobic Blood Culture - Preliminary No growth in 1 day - Procedures NONE
[2018-06-29] MEDS: Insulin Detemir Inj 1,000 UNIT/10 ML Vial SQ SCH (20:14)
[2018-06-30 06:51] LABS: Baso # (Auto) 0.1 th/mm3 (0.0-0.2); Baso % (Auto) 0.5 % (0.0-2.0); Eos # (Auto) 0.1 th/mm3 (0.0-0.4); Eos % (Auto) 1.4 % (0.0-4.0); Hematocrit 28.1 % (39.0-51.0); Hemoglobin 9.4 gm/dL (13.0-17.0); Lymph % (Auto) 10.4 % (9.0-44.0); Mean Corpuscular HGB Conc 33.6 % (32.0-36.0); Mean Corpuscular Hemoglobin 30.2 pg (27.0-34.0); Mean Corpuscular Volume 89.9 fL (80.0-100.0); Mean Platelet Volume 9.8 fL (7.0-11.0); Mono % (Auto) 10.2 % (0.0-8.0); Neut # (Auto) 7.8 th/mm3 (1.8-7.7); Neut % (Auto) 77.5 % (16.0-70.0); Platelet Count 207 th/mm3 (150-450); Red Blood Count 3.12 mil/mm3 (4.50-5.90); Red Cell Distribution Width 13.4 % (11.6-17.2); White Blood Count 10.1 th/mm3 (4.0-11.0)
[2018-06-30 07:13] LABS: Albumin 2.4 g/dL (3.4-5.0); Anion Gap 7 meq/L (5-15); Aspartate Aminotransferase 11 U/L (15-37); Blood Urea Nitrogen 48 mg/dL (7-18); Calcium 8.4 mg/dL (8.5-10.1); Carbon Dioxide 25.3 meq/L (21.0-32.0); Chloride 102 meq/L (98-107); Glomerular Filtration Rate 24 mL/min (>89); Glucose,Random 281 mg/dL (74-106); Magnesium 2.1 mg/dL (1.5-2.5); Potassium 4.8 meq/L (3.5-5.1); Sodium 134 meq/L (136-145)
[2018-06-30 07:23] LABS: Alanine Aminotransferase 16 U/L (12-78); Alkaline Phosphatase 119 U/L (45-117); Free T4 (Free Thyroxine) 1.23 ng/dL (0.76-1.46); Phosphorus 3.3 mg/dL (2.5-4.9); Thyroid Stimulating Hormone 0.974 uIU/mL (0.358-3.740); Total Protein 6.9 g/dL (6.4-8.2); Vancomycin,Random 24.1 Comment
[2018-06-30] MEDS ORDERED: LIRAGLUTIDE 0.6 MG SQ SCH (09:00)
[2018-06-30] MEDS: Ferrous Sulfate 325 MG Tablet PO SCH (09:20)
[2018-06-30] MEDS: Lisinopril 10 MG Tablet PO SCH (09:21)
[2018-06-30] MEDS: hydrALAZINE 50 MG Tablet PO SCH ×3 (09:21→16:59)
[2018-06-30] MEDS: Spironolactone 25 MG Tablet PO SCH (09:21)
[2018-06-30] MEDS: Metoprolol Tartrate 100 MG Tablet PO SCH ×2 (09:21→20:06)
[2018-06-30] MEDS: Heparin - SQ 10,000 UNITS/ML Vial SQ SCH ×2 (09:24→20:07)
[2018-06-30] MEDS: Insulin Detemir Inj 1,000 UNIT/10 ML Vial SQ SCH ×2 (09:25→20:08)
[2018-06-30] MEDS: Insulin NovoLOG Aspart Correctional Sugar Inj SQ SCH ×4 (09:25→20:19)
[2018-06-30] MEDS ORDERED: predniSONE 10 MG Tablet PO ONE (11:46)
--- NOTE | 2018-06-30 11:46 | P.PNIM ---
Subjective Interval history: Patient reports improvement in pain today. He has increased range of motion of bilateral ankles and left knee. Increased redness at right foot. Physical Exam Vital signs: Last Vital Signs Temp 100.9 F H 06/30/18 08:00 Pulse 73 06/30/18 08:00 Resp 17 06/30/18 08:00 BP 164/77 H 06/30/18 08:00 Pulse Ox 96 06/30/18 08:00 Intake & Output 06/28/18 06/29/18 06/30/18 07/01/18 06:59 06:59 06:59 06:59 Intake Total 2640 / 2640 1555 / 1555 Output Total 500 / 500 Balance 2640 / 2640 1055 / 1055 Weight 106.7 kg 106.7 kg Narrative: GENERAL: NAD, A&Ox3 HEAD: Normocephalic. NECK: Supple, trachea midline. No lymphadenopathy. EYES: No scleral icterus. No injection or drainage. CARDIOVASCULAR: Regular rate and rhythm without murmurs, gallops, or rubs. RESPIRATORY: Breath sounds equal bilaterally. No accessory muscle use. GASTROINTESTINAL: Abdomen soft, non-tender, nondistended. MUSCULOSKELETAL: No cyanosis, or edema. SKIN: Warm and dry. Regressing erythema at right foot. NEURO: No focal neurological deficits. Results Labs CBC & Chem 7: 06/30/18 05:06 06/30/18 05:06 Labs: Microbiology 06/28/18 16:00 Blood - Peripheral Aerobic Blood Culture - Preliminary No growth in 2 days 06/28/18 16:00 Blood - Peripheral Anaerobic Blood Culture - Preliminary No growth in 2 days 06/28/18 16:05 Blood - Peripheral Aerobic Blood Culture - Preliminary No growth in 2 days 06/28/18 16:05 Blood - Peripheral Anaerobic Blood Culture - Preliminary No growth in 2 days Assessment and Plan Plan 63-year-old male admitted secondary to polyarticular gouty arthritis exacerbation and diabetic foot infection Polyarticular gout exacerbation Right diabetic foot infection Leukocytosis Left patellar tendinitis ESR and CRP elevated at time of admit Continue vancomycin Continue Zosyn Clinically patient is improving Uric acid elevated Continue prednisone Diabetes mellitus type 2 Follow blood sugars Insulin sliding scale Diabetic diet Hypertension Continue baseline treatment Follow blood pressures Adjust treatments as needed Chronic kidney disease stage III Follow renal function Avoid nephrotoxins Obstructive sleep apnea CPAP at night Follow clinically Progress Note: Quality VTE Deep Vein Thrombosis/Pulmonary Embolism Present on Admission: No
[2018-06-30] MEDS ORDERED: Lidocaine 1% Inj 50 ML Vial ONE (11:55)
[2018-06-30] MEDS ORDERED: Lidocaine PF 0.5% Inj 50 ML Vial I-DERMAL SCH (12:00)
--- NOTE | 2018-06-30 12:08 | P.CONOP ---
[facility] Orthopedics Consult Note - [facility] Consult date: 06/30/18 Requesting physician: Lazarus Traylor Consult reason: joint pain (Left knee swelling possible gout) Chief complaint: diabetic foot infection, sepsis Narrative: This 63-year-old male developed onset of swelling and pain involving his left knee and bilateral feet approximate 10 days ago. Patient was initially evaluated at [facility]. He was unhappy with the care and signed out AMA. He subsequently presented to [facility]. He was noted to have fevers, leukocytosis as well as an elevated sed rate and CRP. He has been on antibiotic therapy. He has been improving. His uric acid level was elevated. Orthopedic consultation was requested for aspiration of the left knee for further crystal examination. The patient states he is much better than he was upon presentation. He still has restriction of left knee mobility. His left foot is slower to respond than his right. He denies any previous history of gout. He has had a previous history of a injury to the anterior aspect of the left knee with a persistent soft tissue swelling consistent with probable chronic prepatellar bursitis. He denies other joint complaints at the present time. Review of Systems All other systems reviewed negative except as stated in [facility] - History History Provided By: Patient - Medical History Medical History: Medical History (Last Reviewed 06/29/18 @ 12:00 by Anamika Maria) Diabetes Hypertension Stage 3 chronic kidney disease - Surgical History Surgical History: Surgical History (Last Reviewed 06/29/18 @ 12:00 by Anamika Maria) History of elbow surgery - Tobacco History Second Hand Smoke Exposure: No Smoking Status: Never smoker - Alcohol History How Often Do You Have a Drink Containing Alcohol: Monthly or less - Substance Use History Substance History: No History of Abuse - Travel History Recent Travel in the [place] Within the Last 8 Weeks: No Recent Travel Out of the Country Within the Last 8 Weeks: No - Immunization History Tetanus Immunization: Unsure Hx Influenza Vaccine This Season: Yes Medications and Allergies Active Medications: Active Medications Acetaminophen (Tylenol) 650 mg PO Q4H PRN PRN Reason: Headache, fever, pain 1-4 Hydrocodone Bitart/Acetaminophen ([place] 7.5/325) 1 tab PO Q4H PRN PRN Reason: Pain 5-10 Last Admin: 06/29/18 20:14 Dose: 1 tab Al Hydroxide/Mg Hydroxide (Milk Of Rei Liq) 30 ml PO Q12H PRN PRN Reason: Mild Constipation Aspirin (Aspirin Chew) 81 mg PO DAILY [facility] Last Admin: 06/30/18 09:20 Dose: 81 mg Bisacodyl (Dulcolax Supp) 10 mg RECTAL DAILY PRN PRN Reason: SEVERE CONSITIPATION Clonidine HCl (Catapres) 0.3 mg PO BID [facility] Last Admin: 06/30/18 09:21 Dose: 0.3 mg Clonidine HCl (Catapres) 0.1 mg PO Q6H PRN PRN Reason: SBP >160, DBP >95 Last Admin: 06/29/18 13:49 Dose: 0.1 mg Dextrose (D50w Vial) 50 ml IV.PUSH UNSCH PRN PRN Reason: PER HYPOGLYCEMIA PROTOCOL Ferrous Sulfate (Ferosul) 325 mg PO DAILY [facility] Last Admin: 06/30/18 09:20 Dose: 325 mg Glucagon (Glucagon Inj) 1 mg OTHER PRN PRN PRN Reason: for Hypoglycemia Protocol Heparin Sodium (Porcine) (Heparin Inj) 5,000 units SQ Q12H [facility] Last Admin: 06/30/18 09:24 Dose: 5,000 units Hydralazine HCl (Apresoline) 50 mg PO TID [facility] Last Admin: 06/30/18 09:21 Dose: 50 mg Ceftriaxone Sodium 2,000 mg/ (Sodium Chloride) 100 mls @ 200 mls/hr IV.SIG Q24H [facility] Last Infusion: 06/29/18 20:43 Dose: Infused Insulin Aspart (Novolog Insulin Correctional Sugar Inj) 0 unit SQ ACHS [facility]; Protocol Last Admin: 06/30/18 09:25 Dose: 5 unit Insulin Detemir (Levemir Inj) 10 unit SQ HS [facility] Last Admin: 06/29/18 20:14 Dose: 10 unit Insulin Detemir (Levemir Inj) 50 unit SQ DAILY [facility] Last Admin: 06/30/18 09:25 Dose: 50 unit Lactulose (Lactulose Liq) 30 ml PO DAILY PRN PRN Reason: SEVERE CONSITIPATION Lisinopril (Prinivil) 10 mg PO DAILY [facility] Last Admin: 06/30/18 09:21 Dose: 10 mg Metoprolol Tartrate (Lopressor) 100 mg PO BID [facility] Last Admin: 06/30/18 09:21 Dose: 100 mg Miscellaneous Information ([facility] Ordered Lab Info) 0 each OTHER ONCE ONE Stop: 07/01/18 19:46 Ondansetron HCl (Zofran Inj) 4 mg IV.PUSH Q6H PRN PRN Reason: NAUSEA OR VOMITING [place]: Liraglutide 0 .6 Mg Subcutaneously Daily 1 each SQ DAILY [facility] Pharmacy Profile Note (Vancomycin Consult Pharmacy) 1 each OTHER UNSCH PRN PRN Reason: Pharmacy to dose Prednisone (Deltasone) 10 mg PO BID [facility] Sennosides (Senokot) 17.2 mg PO Q12H PRN PRN Reason: Moderate Constipation Sodium Chloride (Ns Flush) 2 ml IV.FLUSH BID [facility] Last Admin: 06/30/18 09:26 Dose: 2 ml Sodium Chloride (Ns Flush) 2 ml IV.FLUSH PRN PRN PRN Reason: FLUSH AFTER USING IV ACCESS Spironolactone (Aldactone) 25 mg PO DAILY [facility] Last Admin: 06/30/18 09:21 Dose: 25 mg Allergies Allergy/AdvReac Type Severity Reaction Status Date / Time amlodipine Allergy Swelling Verified 06/28/18 15:29 Home Medications Medication Instructions Recorded Confirmed Type aspirin 81 mg PO DAILY 06/28/18 06/28/18 History clonidine HCl 0.3 mg PO BID 06/28/18 06/28/18 History ferrous sulfate 120 ml PO DAILY 06/28/18 06/28/18 History hydralazine 50 mg PO TID 06/28/18 06/28/18 History insulin glargine [Lantus U-100 50 unit SUBCUT DAILY 06/28/18 06/28/18 History Insulin] insulin lispro [Humalog KwikPen 20 unit SUBCUT BID 06/28/18 06/28/18 History Insulin] liraglutide 0.6 mg SUBCUT DAILY 06/28/18 06/28/18 History lisinopril 10 mg PO DAILY 06/28/18 06/28/18 History metoprolol tartrate 100 mg PO BID 06/28/18 06/28/18 History spironolactone 25 mg PO DAILY 06/28/18 06/28/18 History Exam Vital signs: Vital Signs 06/29/18 12:00 06/29/18 16:00 06/29/18 16:31 Temperature 99.9 F H 100.9 F H Pulse Rate 67 77 Respiratory Rate 16 18 18 Blood Pressure 180/82 H 157/85 H Pulse Oximetry 95 95 06/29/18 19:43 06/29/18 23:51 06/30/18 08:00 Temperature 99.8 F H 100.6 F H 100.9 F H Pulse Rate 73 60 73 Respiratory Rate 19 20 17 Blood Pressure 192/87 H 128/59 L 164/77 H Pulse Oximetry 96 95 96 Intake & Output 06/29/18 06/30/18 06/30/18 18:59 06:59 18:59 Intake Total 240 / 240 1315 / 1315 Output Total 500 / 500 Balance 240 / 240 815 / 815 Weight 106.7 kg Intake: IV 615 / 615 Vancomycin Inj 1,500 MG In NS 515 / 515 Inj 500 ML @ 250 mls/hr IV.SIG ONCE ONE Rx#:[id number] Rocephin Inj 2,000 MG In NS Inj 100 / 100 100 ML @ 200 mls/hr IV.SIG Q24H [facility] Rx#:[id number] Oral 240 / 240 700 / 700 Output: Urine 500 / 500 Other: # Voids 3 Date of Last Bowel Movement 06/28/18 Narrative: There is swelling of both feet. There is mild erythema. There is no induration or fluctuance. He moves his toes freely bilaterally. He has slight restricted mobility of the left ankle. The left knee has what appears to be chronic prepatellar bursitis. It is fairly localized. There is a large joint effusion. There is no increased warmth or erythema. He has restricted active range of motion. He is stable to ligamentous testing. He is able to do a straight leg raise. There is no specific palpable tenderness. The examination is somewhat limited by his restricted mobility. He has no calf discomfort and a negative Homans sign. He has full mobility of both upper extremities. Results - Labs Result Diagrams: 06/30/18 05:06 06/30/18 05:06 Labs: Laboratory Results - last 24 hr 06/29/18 06/29/18 06/29/18 12:35 17:22 20:04 WBC RBC Hgb Hct MCV MCH MCHC RDW Plt Count MPV Neut % (Auto) Lymph % (Auto) [place] % (Auto) Eos % (Auto) Baso % (Auto) Neut # (Auto) Lymph # (Auto) [place] # (Auto) Eos # (Auto) Baso # (Auto) WBC Differential Differential Comment Sodium Potassium Chloride Carbon Dioxide Anion Gap BUN Creatinine Estimated GFR POC Glucose 308 H 290 H 318 H Random Glucose Calcium Phosphorus Magnesium Total Bilirubin AST ALT Alkaline Phosphatase Total Protein Albumin TSH Free T4 Random Vancomycin 06/30/18 06/30/18 06/30/18 05:06 05:06 07:37 WBC 10.1 RBC 3.12 L Hgb 9.4 L Hct 28.1 L MCV 89.9 MCH 30.2 MCHC 33.6 RDW 13.4 Plt Count 207 MPV 9.8 Neut % (Auto) 77.5 H Lymph % (Auto) 10.4 [place] % (Auto) 10.2 H Eos % (Auto) 1.4 Baso % (Auto) 0.5 Neut # (Auto) 7.8 H Lymph # (Auto) 1.0 [place] # (Auto) 1.0 H Eos # (Auto) 0.1 Baso # (Auto) 0.1 WBC Differential . Differential Comment Auto diff final Sodium 134 L Potassium 4.8 Chloride 102 Carbon Dioxide 25.3 Anion Gap 7 BUN 48 H Creatinine 2.69 H Estimated GFR 24 L POC Glucose 271 H Random Glucose 281 H Calcium 8.4 L Phosphorus 3.3 Magnesium 2.1 Total Bilirubin 0.3 AST 11 L ALT 16 Alkaline Phosphatase 119 H Total Protein 6.9 D Albumin 2.4 L TSH 0.974 Free T4 1.23 Random Vancomycin 24.1 - Diagnostic results Knee x-ray: report reviewed (Prepatellar calcification involving the patellar tendon associated with soft tissue swelling most characteristic of chronic patellar tendinitis) Assessment and Plan - Problem List (1) Synovitis of left knee Code(s): M65.9 - Synovitis and tenosynovitis, unspecified Status: Acute Plan: At the request of the medical service the left knee will be aspirated and sent for Gram stain, culture and sensitivity as well as crystal examination. If this is positive for gout, recommendation will be for medical management. If it reveals evidence of a septic joint, it will require surgical management. Will follow. (2) Diabetic foot infection Code(s): E11.628 - Type 2 diabetes mellitus with other skin complications; L08.9 - Local infection of the skin and subcutaneous tissue, unspecified Status: Acute (3) Sepsis Code(s): A41.9 - Sepsis, unspecified organism Status: Acute Qualifiers: Sepsis type: sepsis due to unspecified organism Qualified Code(s): A41.9 - Sepsis, unspecified organism
[2018-06-30 12:39] LABS: Hemoglobin A1c 8.5 % (4.3-6.0)
--- NOTE | 2018-06-30 13:43 | P.PNOP ---
Subjective Interval history: Patient tolerated left knee aspiration well. Physical Exam Vital signs: Vital Signs 06/29/18 16:00 06/29/18 16:31 06/29/18 19:43 Temperature 100.9 F H 99.8 F H Pulse Rate 77 73 Respiratory Rate 18 18 19 Blood Pressure 157/85 H 192/87 H Pulse Oximetry 95 96 06/29/18 23:51 06/30/18 08:00 Temperature 100.6 F H 100.9 F H Pulse Rate 60 73 Respiratory Rate 20 17 Blood Pressure 128/59 L 164/77 H Pulse Oximetry 95 96 Intake & Output 06/29/18 06/30/18 06/30/18 18:59 06:59 18:59 Intake Total 240 / 240 1315 / 1315 Output Total 500 / 500 Balance 240 / 240 815 / 815 Weight 106.7 kg Intake: IV 615 / 615 Vancomycin Inj 1,500 MG In NS 515 / 515 Inj 500 ML @ 250 mls/hr IV.SIG ONCE ONE Rx#:[id number] Rocephin Inj 2,000 MG In NS Inj 100 / 100 100 ML @ 200 mls/hr IV.SIG Q24H JUSTICE Rx#:[id number] Oral 240 / 240 700 / 700 Output: Urine 500 / 500 Other: # Voids 3 Date of Last Bowel Movement 06/28/18 Narrative: There is swelling of both feet. There is mild erythema. There is no induration or fluctuance. He moves his toes freely bilaterally. He has slight restricted mobility of the left ankle. The left knee has what appears to be chronic prepatellar bursitis. It is fairly localized. There is a large joint effusion. There is no increased warmth or erythema. He has restricted active range of motion. He is stable to ligamentous testing. He is able to do a straight leg raise. There is no specific palpable tenderness. The examination is somewhat limited by his restricted mobility. He has no calf discomfort and a negative Homans sign. He has full mobility of both upper extremities. Results - Labs CBC & Chem 7: 06/30/18 05:06 06/30/18 05:06 Laboratory Results - last 24 hr 06/29/18 06/29/18 06/30/18 17:22 20:04 05:06 WBC 10.1 RBC 3.12 L Hgb 9.4 L Hct 28.1 L MCV 89.9 MCH 30.2 MCHC 33.6 RDW 13.4 Plt Count 207 MPV 9.8 Neut % (Auto) 77.5 H Lymph % (Auto) 10.4 [place] % (Auto) 10.2 H Eos % (Auto) 1.4 Baso % (Auto) 0.5 Neut # (Auto) 7.8 H Lymph # (Auto) 1.0 [place] # (Auto) 1.0 H Eos # (Auto) 0.1 Baso # (Auto) 0.1 WBC Differential . Differential Comment Auto diff final Sodium Potassium Chloride Carbon Dioxide Anion Gap BUN Creatinine Estimated GFR POC Glucose 290 H 318 H Random Glucose Hemoglobin A1c Calcium Phosphorus Magnesium Total Bilirubin AST ALT Alkaline Phosphatase Total Protein Albumin TSH Free T4 Random Vancomycin 06/30/18 06/30/18 06/30/18 05:06 05:06 07:37 WBC RBC Hgb Hct MCV MCH MCHC RDW Plt Count MPV Neut % (Auto) Lymph % (Auto) [place] % (Auto) Eos % (Auto) Baso % (Auto) Neut # (Auto) Lymph # (Auto) [place] # (Auto) Eos # (Auto) Baso # (Auto) WBC Differential Differential Comment Sodium 134 L Potassium 4.8 Chloride 102 Carbon Dioxide 25.3 Anion Gap 7 BUN 48 H Creatinine 2.69 H Estimated GFR 24 L POC Glucose 271 H Random Glucose 281 H Hemoglobin A1c 8.5 H Calcium 8.4 L Phosphorus 3.3 Magnesium 2.1 Total Bilirubin 0.3 AST 11 L ALT 16 Alkaline Phosphatase 119 H Total Protein 6.9 D Albumin 2.4 L TSH 0.974 Free T4 1.23 Random Vancomycin 24.1 06/30/18 12:03 WBC RBC Hgb Hct MCV MCH MCHC RDW Plt Count MPV Neut % (Auto) Lymph % (Auto) [place] % (Auto) Eos % (Auto) Baso % (Auto) Neut # (Auto) Lymph # (Auto) [place] # (Auto) Eos # (Auto) Baso # (Auto) WBC Differential Differential Comment Sodium Potassium Chloride Carbon Dioxide Anion Gap BUN Creatinine Estimated GFR POC Glucose 330 H Random Glucose Hemoglobin A1c Calcium Phosphorus Magnesium Total Bilirubin AST ALT Alkaline Phosphatase Total Protein Albumin TSH Free T4 Random Vancomycin Microbiology 06/28/18 16:00 Blood - Peripheral Aerobic Blood Culture - Preliminary No growth in 2 days 06/28/18 16:00 Blood - Peripheral Anaerobic Blood Culture - Preliminary No growth in 2 days 06/28/18 16:05 Blood - Peripheral Aerobic Blood Culture - Preliminary No growth in 2 days 06/28/18 16:05 Blood - Peripheral Anaerobic Blood Culture - Preliminary No growth in 2 days Assessment and Plan - Problem List (1) Synovitis of left knee Code(s): M65.9 - Synovitis and tenosynovitis, unspecified Status: Acute Plan: At the request of the medical service the left knee will be aspirated and sent for Gram stain, culture and sensitivity as well as crystal examination. If this is positive for gout, recommendation will be for medical management. If it reveals evidence of a septic joint, it will require surgical management. Will follow. RG Left Knee aspiration procedure note: Moderate knee effusion was present. Lateral anterior area of knee was prepped with Betadine and alcohol. Superficial skin was injected with 5cc of 1% Lidocaine. 18 gauge needle was introduced into the joint itself. Approximately 30cc of yellow tinged synovial fluid was obtained. It did not appear septic in nature. Area was appropriately cleansed and dressed. Apply ice as needed and continue with gentle ROM and WBAT. (2) Diabetic foot infection Code(s): E11.628 - Type 2 diabetes mellitus with other skin complications; L08.9 - Local infection of the skin and subcutaneous tissue, unspecified Status: Acute (3) Sepsis Code(s): A41.9 - Sepsis, unspecified organism Status: Acute Qualifiers: Sepsis type: sepsis due to unspecified organism Qualified Code(s): A41.9 - Sepsis, unspecified organism
[2018-06-30 14:44] LABS: Lymphocytes,Synovial Fluid 2 %
[2018-06-30 14:50] LABS: Appearance,Synovial Fluid Moderate (Clear); Color,Synovial Fluid Red (Straw); Neutrophils,Synovial Fluid 81 % (0-25)
[2018-06-30] MEDS: predniSONE 10 MG Tablet PO SCH (20:06)
[2018-07-01 04:49] LABS: Baso % (Auto) 0.3 % (0.0-2.0); Eos % (Auto) 0.1 % (0.0-4.0); Hemoglobin 9.2 gm/dL (13.0-17.0); Lymph # (Auto) 0.7 th/mm3 (1.0-4.8); Lymph % (Auto) 6.6 % (9.0-44.0); Mean Corpuscular HGB Conc 34.2 % (32.0-36.0); Mean Corpuscular Hemoglobin 30.1 pg (27.0-34.0); Mean Corpuscular Volume 87.8 fL (80.0-100.0); Mean Platelet Volume 9.8 fL (7.0-11.0); Mono # (Auto) 0.7 th/mm3 (0.0-0.9); Mono % (Auto) 6.4 % (0.0-8.0); Neut # (Auto) 9.3 th/mm3 (1.8-7.7); Neut % (Auto) 86.6 % (16.0-70.0); Platelet Count 220 th/mm3 (150-450); Red Blood Count 3.07 mil/mm3 (4.50-5.90); Red Cell Distribution Width 13.7 % (11.6-17.2); White Blood Count 10.7 th/mm3 (4.0-11.0)
[2018-07-01 05:13] LABS: Alanine Aminotransferase 36 U/L (12-78); Albumin 2.3 g/dL (3.4-5.0); Alkaline Phosphatase 179 U/L (45-117); Anion Gap 5 meq/L (5-15); Aspartate Aminotransferase 35 U/L (15-37); Blood Urea Nitrogen 53 mg/dL (7-18); Calcium 8.6 mg/dL (8.5-10.1); Carbon Dioxide 25.3 meq/L (21.0-32.0); Chloride 102 meq/L (98-107); Glomerular Filtration Rate 24 mL/min (>89); Glucose,Random 295 mg/dL (74-106); Potassium 5.3 meq/L (3.5-5.1); Sodium 132 meq/L (136-145)
[2018-07-01] MEDS: Heparin - SQ 10,000 UNITS/ML Vial SQ SCH (09:06)
[2018-07-01] MEDS: Metoprolol Tartrate 100 MG Tablet PO SCH (09:06)
[2018-07-01] MEDS: Lisinopril 10 MG Tablet PO SCH (09:07)
[2018-07-01] MEDS: predniSONE 10 MG Tablet PO SCH (09:07)
[2018-07-01] MEDS: Ferrous Sulfate 325 MG Tablet PO SCH (09:07)
[2018-07-01] MEDS: Spironolactone 25 MG Tablet PO SCH (09:07)
[2018-07-01] MEDS: hydrALAZINE 50 MG Tablet PO SCH (09:07)
[2018-07-01] MEDS: Insulin NovoLOG Aspart Correctional Sugar Inj SQ SCH ×2 (09:16→11:35)
[2018-07-01] MEDS: Insulin Detemir Inj 1,000 UNIT/10 ML Vial SQ SCH (09:16)
--- NOTE | 2018-07-01 11:45 | P.DS ---
DS: Providers Date of admission: 06/28/18 17:29 Primary care physician: UNKNOWN Consults: 06/29/18 06:19 Consult to Orthopedic Surgery Routine Consulting Provider: Bon Perea Reason for Consultation: suspected polyarticular gouty arthritis flare- to please evaluate for possible tap and fluid analysis, thank you Notified:: Service Spoke with:: Ale Date Notified:: 06/29/18 Time Notified:: 07:24 Ordering Provider: CHARLIE Brief History from admission: History from patient, ER notes, patient's girlfriend at the bedside, and review of medical records. Records from [facility] also reviewed. Patient reported that starting Billy zahra, he was having pain and swelling of his right foot with mild redness. He actually went to then started having his chiropractor a week ago Monday and had some maneuvers done. It did not really improve his symptoms. By about 4 days ago, his swelling has also happened on his left foot and his left knee. He stated both feet were quite swollen and stiff that he was not able to flex them. He therefore went to [facility] yesterday and was admitted there. However he was not happy with the treatment there stating that there were 9 people in his room. He states they were giving him antibiotics. He believes that he was improved with this and the swelling has gone down and he is now able to flex his feet. However he does not exactly know the diagnosis. When asked, patient stated that his left knee has been having some deformity since several years ago. 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 He states however the swelling and the pain in the prepatellar area is new. Patient and girlfriend at the bedside stated that patient eats a lot of red meat. However he is not a drinker. He is not diabetic also diabetic. Patient denies any recent fevers. He report of stepping on a piece of glass about 2 weeks prior to onset of his symptoms and Billy. However he was quite confident that he removed that piece of glass at that time. Apart from the above, patient denies any recent nausea/vomiting/diarrhea/ urinary burning or pain on urination. Denies any hematemesis/hematochezia/melena/hematuria. Denies any chest pain/palpitations/shortness of breath/syncopal episodes/ dizziness/falls. He does report of dry cough but this has been chronic. Past medical history: Diabetes Hypertension Chronic kidney disease stage III Obstructive sleep apnea on CPAP at night Past surgical history: Umbilical hernia repair Elbow surgery at the age of [age] years old Glaucoma surgery Cataract surgery Colonoscopy. Latest last year. Social history: Denies smoking/alcohol abuse/drug abuse. Family history: Father had colon cancer. 2 brothers have diabetes. One sister has heart disease. Home medications: Patient has a list of pills of his home medications with him. This was reviewed with him and the nurse. Clonidine 0.3 mg. Take half a tablet of it 3 times daily. Lantus 50 units subcu nightly. Victoza 0.6 mg subcu nightly. Humalog sliding scale 3 times daily before meals. Metoprolol 100 mg p.o. twice daily. Spironolactone 25 mg p.o. nightly. Aspirin 81 mg p.o. daily. Lasix 20 mg p.o. daily. Lisinopril 20 mg half a tablet of that p.o. nightly. Iron pills. Folic acid. DS: Diagnosis Discharge Diagnosis (1) Synovitis of left knee: Status: Acute (2) Diabetic foot infection: Status: Acute (3) Sepsis: Status: Acute DS: Summary Mr. Juan Ramon Steward is a 63-year-old male. He is admitted secondary to gout exacerbation and diabetic foot infection. With antibiotics his erythema has improved. With IV hydration and steroids his gout flareup is also improving. At this point he is medically stable and clear for discharge to home. He will continue on Bactrim, low-dose prednisone taper, short course of [place], and probiotics at time of discharge. Time Spent with Patient Total time spent providing and/or coordinating discharge services: Quality: VTE Deep Vein Thrombosis/Pulmonary Embolism Present on Admission: No Results Labs on day of discharge: Labs from last 24 hours 07/01/18 07/01/18 06/30/18 03:49 03:49 22:00 WBC 10.7 RBC 3.07 L Hgb 9.2 L Hct 27.0 L MCV 87.8 MCH 30.1 MCHC 34.2 RDW 13.7 Plt Count 220 MPV 9.8 Neut % (Auto) 86.6 H Lymph % (Auto) 6.6 L [place] % (Auto) 6.4 Eos % (Auto) 0.1 Baso % (Auto) 0.3 Neut # (Auto) 9.3 H Lymph # (Auto) 0.7 L [place] # (Auto) 0.7 Eos # (Auto) 0.0 Baso # (Auto) 0.0 WBC Differential . Differential Comment Auto diff final Sodium 132 L Potassium 5.3 H Chloride 102 Carbon Dioxide 25.3 Anion Gap 5 BUN 53 H Creatinine 2.71 H Estimated GFR 24 L POC Glucose 302 H Random Glucose 295 H Hemoglobin A1c Calcium 8.6 Total Bilirubin 0.2 AST 35 ALT 36 Alkaline Phosphatase 179 H Total Protein 7.0 Albumin 2.3 L Synovial Color Synovial Appearance Synovial RBC Synovial Nuc Cells Synovial Neutrophils Synovial Lymphocytes Synovial Monocytes Synovial Crystals Synovial Fluid Comment Random Vancomycin 11.0 06/30/18 06/30/18 06/30/18 16:28 12:58 12:58 WBC RBC Hgb Hct MCV MCH MCHC RDW Plt Count MPV Neut % (Auto) Lymph % (Auto) [place] % (Auto) Eos % (Auto) Baso % (Auto) Neut # (Auto) Lymph # (Auto) [place] # (Auto) Eos # (Auto) Baso # (Auto) WBC Differential Differential Comment Sodium Potassium Chloride Carbon Dioxide Anion Gap BUN Creatinine Estimated GFR POC Glucose 338 H Random Glucose Hemoglobin A1c Calcium Total Bilirubin AST ALT Alkaline Phosphatase Total Protein Albumin Synovial Color Red H Synovial Appearance Moderate H Synovial RBC 4500 H Synovial Nuc Cells 4300 H Synovial Neutrophils 81 H Synovial Lymphocytes 2 Synovial Monocytes 17 Synovial Crystals Pos-uric acid Synovial Fluid Comment Random Vancomycin 06/30/18 06/30/18 12:03 05:06 WBC RBC Hgb Hct MCV MCH MCHC RDW Plt Count MPV Neut % (Auto) Lymph % (Auto) [place] % (Auto) Eos % (Auto) Baso % (Auto) Neut # (Auto) Lymph # (Auto) [place] # (Auto) Eos # (Auto) Baso # (Auto) WBC Differential Differential Comment Sodium Potassium Chloride Carbon Dioxide Anion Gap BUN Creatinine Estimated GFR POC Glucose 330 H Random Glucose Hemoglobin A1c 8.5 H Calcium Total Bilirubin AST ALT Alkaline Phosphatase Total Protein Albumin Synovial Color Synovial Appearance Synovial RBC Synovial Nuc Cells Synovial Neutrophils Synovial Lymphocytes Synovial Monocytes Synovial Crystals Synovial Fluid Comment Random Vancomycin Preliminary micro results at discharge 06/28/18 16:00 Aerobic Blood Culture - Preliminary Blood - Peripheral No growth in 3 days Anaerobic Blood Culture - Preliminary No growth in 3 days 06/28/18 16:05 Aerobic Blood Culture - Preliminary Blood - Peripheral No growth in 3 days Anaerobic Blood Culture - Preliminary No growth in 3 days Impressions ITS Impressions Foot X-Ray 06/28/18 15:34 CONCLUSION: Generalized soft tissue swelling. No evidence of destructive changes or acute fracture. Midfoot degenerative changes. Knee X-Ray 06/28/18 15:34 CONCLUSION: Prepatellar calcification involving the patellar tendon associated with soft tissue swelling most characteristic of chronic patellar tendinitis Patellofemoral degenerative disease. Small joint effusion. No evidence of acute fracture. Discharge Plan Discharge Disposition Patient Disposition: Discharge Home Discharge Condition Condition: Stable Discharge Order Discharge Orders: Discharge Order (Routine); Ordered 07/01/18 Ordered By: Lazarus Traylor Discharge Details Anticipated Discharge Date: 07/01/18 Physicians Team Primary Care Provider: UNKNOWN, Attending Provider: Lazarus Traylor Other Providers: Bon Perea Rxs /Orders / Referrals /Forms Prescriptions: New prednisone 10 mg Tablet 10 mg PO DIRECTED Qty: 11 RF: 0 hydrocodone-acetaminophen 7.5-325 mg Tablet 1 tab PO Q6HR PRN (Reason: Pain 5-10) Qty: 20 RF: 0 sulfamethoxazole-trimethoprim [Bactrim DS] 800-160 mg tablet 1 tab PO BID 5 Days Qty: 10 RF: 0 Lactobacillus acidophilus Capsule 500 mmu cells PO TID Qty: 30 RF: 0 Continue metoprolol tartrate 100 mg Tablet 100 mg PO BID RF: 0 clonidine HCl 0.3 mg Tablet 0.3 mg PO TID RF: 0 spironolactone 25 mg Tablet 25 mg PO DAILY RF: 0 ferrous sulfate 325 mg (65 mg iron) Tablet 120 ml PO DAILY RF: 0 aspirin 81 mg Tablet,Chewable 81 mg PO DAILY RF: 0 hydralazine 50 mg Tablet 50 mg PO TID RF: 0 insulin lispro [Humalog KwikPen Insulin] 100 unit/mL Insulin Pen 20 unit SUBCUT BID RF: 0 liraglutide 0.6 mg/0.1 mL (18 mg/3 mL) Pen Injector 0.6 mg SUBCUT DAILY RF: 0 insulin glargine [Lantus U-100 Insulin] 100 unit/mL Solution 50 unit SUBCUT DAILY RF: 0 lisinopril 10 mg Tablet 20 mg PO DAILY RF: 0 furosemide 20 mg Tablet 20 mg PO BID RF: 0 Referrals: UNKNOWN, [Primary Care Provider] - See Instructions Discharge Interventions Interventions: Discharge Planning - Case Management Last Done: 06/29/18 15:27 Status ED Status: Left Department
[2018-07-01] MEDS ORDERED: Vancomycin Inj 1,750 MG in Sodium Chlor 0.9% Inj 500 ML IV.SIG ONE (14:00)
[2018-07-01] MEDS ORDERED: Pharmacy Ordered Lab Info OTHER ONE (19:45)
== END 2018-07-01 12:51 | disposition home or self-care (01) | DRG 553 ==
LOC: NEPC 13:04 → NEDH 17:29 → H7ONC 22:35 → N07 06-29 16:19
PROVIDERS: ADMIT Hospitalist; ATTEND Hospitalist
DX: E11.628 Type 2 diabetes mellitus with other skin complications; N18.3 Chronic kidney disease, stage 3 (moderate); E11.22 Type 2 diabetes mellitus with diabetic chronic kidney disease; Z79.4 Long term (current) use of insulin; Z83.3 Family history of diabetes mellitus; I12.9 Hypertensive chronic kidney disease with stage 1 through stage 4 chronic kidney disease, or unspecified chronic kidney disease; M10.062 Idiopathic gout, left knee; G47.33 Obstructive sleep apnea (adult) (pediatric); M25.462 Effusion, left knee; A41.9 Sepsis, unspecified organism; L08.9 Local infection of the skin and subcutaneous tissue, unspecified; E11.65 Type 2 diabetes mellitus with hyperglycemia; M76.52 Patellar tendinitis, left knee
CPT/HCPCS: 73564; 73630; 80048; 80053; 80202; 82948; 82962; 83036; 83605; 83735; 84100; 84439; 84443; 84550; 85025; 85610; 85651; 85652; 85730; 86140; 87040; 87070; 87205; 89051; 89060; 90760; 90761; 96360; 96361; 97162; 97166; 99285; J0696; J1644; J1815; J2543; J3370; J7030; J7040; J7050; J7506; J7512